=== PATIENT | female | born 1995 | race Caucasian/White ===

== ENCOUNTER 2020-12-10 21:48 | Outpatient (CLI) | payer OTHER ==
[2020-12-10 22:39] VITALS: BP 132/73
--- NOTE | 2020-12-10 23:26 | IPNPDOC ---
Text Note Date of Service The patient was seen on 12/10/20. NOTE 25 yo called re decreased movement x 1 hour. never seen here. has all care in [place] . PATIENT CALLED [place] TOLD TO COME TO [facility] FOR EVALUATION. ATTEMPTED TO GET RECORDS FROM [facility] IN [place], UNAVAILABLE. 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 HAS BEEN GOING WEEKLY TO [place] FOR VISITS. PATIENT HISTORY IS PRIMARY CS HAD CS, FOR PRE E NRFHT FAILURE TO DILATE AFTER IOL DEVELOPED INFECTION PP . HAD ELEVATED 1 HOUR GLUCOSE NO 3 HOUR GTT NO DIET OR MONITORING. ON EXAMINATION TODAY NO CONTRACTIONS NO VAGINAL BLEEDING NO SCAR PAIN. SF HEIGHT 40 VERTEX PRESENTATION. CATEGORY 1 STRIP NO CONTRACTIONS MODERATE VARIABILITY BASELINE NORMAL. NO DECELERATIONS VITALS TEMP 97.7, BP 132/73, RR 18 PULSE 115 . URINE 1015 SG 7 GLUCOSE 250 REST NEGATIVE . GBS NEGATIVE PATIENT DISCHARGED UNDELIVERED PRECAUTIONS GIVEN US VERTEX DIOMEDES SMALLEST POCKET VERTICAL 2.79 CM LIMB MOTION NOTED GOOD FLEXION VS,Fishbone, I+O VS, Fishbone, I+O Vital Signs Date Time Temp Pulse Resp B/P (MAP) Pulse Ox O2 Delivery O2 Flow Rate FiO2 12/10/20 22:39 97.7 115 18 132/73 (92) Room Air Abdi Nj MD Dec 10, 2020 23:25
== END 2020-12-10 23:31 | disposition home or self-care (01) ==
LOC: EDBD 21:48 → M LDO 21:48
PROVIDERS: ATTEND Obstetrics & Gynecology
DX: O36.8130 Decreased fetal movements, third trimester, not applicable or unspecified (principal); Z3A.00 Weeks of gestation of pregnancy not specified; O34.211 Maternal care for low transverse scar from previous cesarean delivery; Z87.59 Personal history of other complications of pregnancy, childbirth and the puerperium
CPT/HCPCS: 59025; 76815; G0378; G0463

== ENCOUNTER 2020-12-20 01:56 | Emergency (ER) | payer OTHER ==
[~2020-12-20] VITALS: Ht 165.1 cm; Wt 90.9 kg
[2020-12-20 03:30] LABS: APPEARANCE, URINE CLEAR (CLEAR); BACTERIA, URINE AUTO 1+ (NEGATIVE); BILIRUBIN, URINE AUTO NEGATIVE (NEGATIVE); BLOOD, URINE BLOOD 3+ (NEGATIVE); COLOR, URINE STRAW (YELLOW); GLUCOSE, URINE (UA) AUTO NEGATIVE (NEGATIVE); KETONE, URINE AUTO NEGATIVE (NEGATIVE); LEUKOCYTE ESTERASE, URINE AUTO NEGATIVE (NEGATIVE); NITRITE, URINE AUTO NEGATIVE (NEGATIVE); PROTEIN, URINE AUTO NEGATIVE (NEGATIVE); RBC, URINE AUTO 17 /HPF (0-3); SPECIFIC GRAVITY URINE AUTO 1.003 (1.002-1.035); SQUAMOUS EPITHELIAL CELL UR AU 0 /HPF (0-6); UROBILINOGEN, URINE AUTO 0.2 mg/dL (0.0-2.0); WBC, URINE AUTO 1 /HPF (0-3)
[2020-12-20 03:40] LABS: HEMATOCRIT 29.4 % (36.0-47.0); HEMOGLOBIN 9.4 g/dl (12.0-15.5); MEAN CORPUSCULAR VOLUME 81.4 fl (80.0-96.0); PLATELET COUNT, AUTOMATED 237 10^3/uL (150-450); RED BLOOD COUNT 3.61 10^6/uL (4.00-5.40); WHITE BLOOD COUNT 13.3 10^3/uL (4.0-10.0)
[2020-12-20 04:15] VITALS: BP 129/61
[2020-12-20 04:16] LABS: ALBUMIN 2.6 GM/DL (3.2-5.2); ALT/SGPT 23 U/L (12-78); BILIRUBIN,TOTAL 0.1 MG/DL (0.2-1.0); BLOOD UREA NITROGEN 17 MG/DL (7-18); CALCIUM LEVEL 8.8 MG/DL (8.5-10.1); CARBON DIOXIDE LEVEL 26 MEQ/L (21-32); CHLORIDE LEVEL 108 MEQ/L (98-107); CREATININE FOR GFR 0.59 MG/DL (0.55-1.30); GLOMERULAR FILTRATION RATE > 60.0 (>60); GLUCOSE, FASTING 92 MG/DL (70-100); POTASSIUM SERUM 4.1 MEQ/L (3.5-5.1); SODIUM LEVEL 141 MEQ/L (136-145); TOTAL PROTEIN 6.5 GM/DL (6.4-8.2)
--- NOTE | 2020-12-20 19:59 | ECGEPIP ---
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
== END 2020-12-20 04:42 | disposition home or self-care (01) ==
LOC: M ED 01:56
DX: R55 Syncope and collapse (principal); Z87.59 Personal history of other complications of pregnancy, childbirth and the puerperium

== ENCOUNTER 2021-05-01 18:43 | Emergency (ER) | payer OTHER ==
[~2021-05-01] VITALS: Ht 165.1 cm; Wt 95.7 kg
[2021-05-01] MEDS ORDERED: ONDANSETRON 4MG/2ML VIAL IV ONE (20:30)
[2021-05-01] MEDS ORDERED: KETOROLAC 30 MG/ML 1ML VIAL IV ONE (20:30)
[2021-05-01] MEDS ORDERED: NS 1,000 ML IV ONE (20:30)
[2021-05-01 21:06] LABS: BASO # 0.1 10^3/uL (0.0-0.2); BASO % 0.7 % (0.0-1.0); EOS # 0.2 10^3/uL (0.0-0.5); HEMOGLOBIN 14.1 g/dl (12.0-15.5); LYMPH # 3.3 10^3/uL (1.5-5.0); LYMPH % 15.3 % (24.0-44.0); MEAN CORPUSCULAR HEMOGLOBIN 27.3 pg (27.0-33.0); MEAN CORPUSCULAR VOLUME 85.3 fl (80.0-96.0); MONO % 4.4 % (2.0-8.0); NEUTROPHILS # 16.7 10^3/uL (1.5-8.5); NEUTROPHILS % 78.2 % (36.0-66.0); PLATELET COUNT, AUTOMATED 329 10^3/uL (150-450); RED BLOOD COUNT 5.16 10^6/uL (4.00-5.40); WHITE BLOOD COUNT 21.4 10^3/uL (4.0-10.0)
[2021-05-01 21:42] LABS: RSV AMPLIFICATION NEGATIVE (NEGATIVE)
--- NOTE | 2021-05-01 22:01 | REPVR ---
PROCEDURE INFORMATION: Exam: XR Chest Exam date and time: 05/01/2021 8:39 PM Age: 26 years old Clinical indication: Shortness of breath; Additional info: SOB TECHNIQUE: Imaging protocol: XR of the chest. Views: 1 view. COMPARISON: No relevant prior studies available. FINDINGS: Lungs: Unremarkable. No consolidation. Pleural spaces: Unremarkable. No pleural effusion. No pneumothorax. Heart/Mediastinum: Unremarkable. No cardiomegaly. Bones/joints: Unremarkable. IMPRESSION: No acute findings. Electronically signed by: Delano Hanson On 05/01/2021 22:00:27 PM
[2021-05-01] MEDS ORDERED: ISOVUE-370 76% 100ML VIAL As Ordered ONE (22:44)
--- NOTE | 2021-05-01 23:21 | REPVR ---
PROCEDURE INFORMATION: Exam: CTA Chest With Contrast Exam date and time: 05/01/2021 10:46 PM Age: 26 years old Clinical indication: Shortness of breath; Additional info: donald ALMONTE, mariel TECHNIQUE: Imaging protocol: Computed tomographic angiography of the chest with contrast. Axial, coronal and sagittal reformatted images were created and reviewed. 3D rendering (Not supervised by radiologist): MIP and/or 3D reconstructed images were created by the technologist. Radiation optimization: All CT scans at this facility use at least one of these dose optimization techniques: automated exposure control; mA and/or kV adjustment per patient size (includes targeted exams where dose is matched to clinical indication); or iterative reconstruction. Contrast material: ISOVUE 370; Contrast volume: 75 ml; Contrast route: INTRAVENOUS (IV); COMPARISON: CR PORTABLE CHEST X-RAY 05/01/2021 8:33 PM FINDINGS: Pulmonary arteries: Contrast opacification satisfactory. No intraluminal filling defect. Aorta: Unremarkable. No aneurysm or dissection. Lungs: Unremarkable. No consolidation. No mass. Pleural spaces: Unremarkable. No pneumothorax. No pleural effusion. Heart: Unremarkable. No cardiomegaly. No pericardial effusion. Lymph nodes: No pathologically enlarged lymph nodes. Bones/joints: No acute osseous abnormality. Soft tissues: Unremarkable. IMPRESSION: No CT evidence of pulmonary embolism. Electronically signed by: Christiano Melton On 05/01/2021 23:20:39 PM
[2021-05-02 00:57] VITALS: BP 138/83
--- NOTE | 2021-05-02 19:16 | ECGEPIP ---
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
== END 2021-05-02 00:57 | disposition home or self-care (01) ==
LOC: M ED 18:43
DX: R06.02 Shortness of breath (principal); D72.829 Elevated white blood cell count, unspecified; M79.10 Myalgia, unspecified site; J02.9 Acute pharyngitis, unspecified; R53.83 Other fatigue; Z88.2 Allergy status to sulfonamides
CPT/HCPCS: 71045; 71275; 80047; 85025; 85379; 87631; 87880; 93005; 96361; 96374; 96375; 99284; J1885; J2405; Q9967

== ENCOUNTER 2022-01-25 05:09 | Inpatient (IN) | payer OTHER ==
[2022-01-25] VITALS (9 sets, daily range): BP systolic 109–125; BP diastolic 58–84
[~2022-01-25] VITALS: Ht 165.1 cm; Wt 96.8 kg
[~2022-01-25 05:09] MED LIST: FOLI1TAB11 PO; PRENTAB53 PO; UNIS25TA3 PO; ZOLO50TA PO
[2022-01-25] MEDS ORDERED: HOME MED LIST COMPLETE! XX SCH (05:30)
[2022-01-25] MEDS ORDERED: LR 1,000 ML IV SCH ×2 (06:00→10:05)
[2022-01-25] MEDS ORDERED: BUPIVACAINE HCL 0.25% 10ML VIAL SC ONE ×2 (06:00→07:05)
[2022-01-25] MEDS ORDERED: LACTATED RINGER'S 1000 ML IV ONE (06:00)
[2022-01-25] MEDS ORDERED: BICITRA 30ML SOLN UDC PO ONE ×2 (06:00→07:05)
[2022-01-25] MEDS ORDERED: ACETAMINOPHEN 650 MG SUPP PR ONE ×2 (06:00→07:05)
[2022-01-25] MEDS ORDERED: ceFAZolin SOD 1 GM in D5W MINI-BAG PLUS 50 ML IV ONE (06:00)
[2022-01-25] MEDS ORDERED: AZITHROMYCIN INJ 500 MG, VIAL MATE ADAPTER 1 EACH in NS 250 ML IV ONE ×2 (06:05→07:05)
[2022-01-25 06:40] LABS: HEMATOCRIT 34.1 % (36.0-47.0); HEMOGLOBIN 11.2 g/dl (12.0-15.5); MEAN CORPUSCULAR HEMOGLOBIN 27.3 pg (27.0-33.0); MEAN CORPUSCULAR HGB CONC 32.8 g/dl (32.0-36.5); PLATELET COUNT, AUTOMATED 159 10^3/uL (150-450); RED BLOOD COUNT 4.11 10^6/uL (4.00-5.40); WHITE BLOOD COUNT 13.3 10^3/uL (4.0-10.0)
[2022-01-25] MEDS ORDERED: OXYTOCIN DRIP 30 UNITS in IV 1 EA IV PRN ×4 (07:05)
[2022-01-25] MEDS ORDERED: OXYTOCIN INJ 10 UNITS/ML VIAL (J2590) IV PRN (07:05)
[2022-01-25] MEDS ORDERED: TRANEXAMIC ACID INJection 1,000 MG in NS 100 ML IV PRN (07:05)
[2022-01-25] MEDS ORDERED: ceFAZolin SOD 2 GM in IV 1 EA IV ONE (07:05)
[2022-01-25] MEDS ORDERED: METHYLERGONOVINE MALEATE 0.2 MG/ML VIAL (J2210) IM PRN (07:05)
[2022-01-25] MEDS ORDERED: LIDOCAINE 1% MDV 20ML VIAL INFIL PRN (07:05)
[2022-01-25] MEDS ORDERED: OXYTOCIN INJ 10 UNITS/ML VIAL (J2590) As Ordered ONE ×4 (07:26→09:44)
[2022-01-25] MEDS ORDERED: MORPHINE PRES-FREE INJ 10 MG/10 ML VIAL As Ordered ONE (07:26)
[2022-01-25] MEDS ORDERED: ceFAZolin 2 GM/D5W 50 ML IV BAG (J0690 PER 500MG) As Ordered ONE (07:33)
[2022-01-25] MEDS ORDERED: AZITHROMYCIN INJ 500MG VIAL As Ordered ONE (07:34)
[2022-01-25] MEDS ORDERED: METOCLOPRAMIDE INJ 10MG/2ML VIAL (J2765 PER 1) IV PRN (08:28)
[2022-01-25] MEDS ORDERED: ONDANSETRON 4MG/2ML VIAL IV PRN ×2 (08:28→10:05)
[2022-01-25] MEDS ORDERED: diphenhydrAMINE 50MG/ML VIAL (J1200) IV PRN (08:28)
[2022-01-25] MEDS ORDERED: NALOXONE INJ 0.4MG/1ML VIAL (J2310 PER 1MG) IV PRN ×2 (08:28)
[2022-01-25] MEDS ORDERED: ONDANSETRON 4MG/2ML VIAL As Ordered ONE (09:01)
[2022-01-25] MEDS ORDERED: dexameTHASONE 4 MG/ML 1ML VIAL (J1100 PER 1MG) As Ordered ONE (09:01)
[2022-01-25] MEDS ORDERED: LIDOCAINE 2% 100MG/5ML SDV (FOR ANES.) As Ordered ONE (09:05)
[2022-01-25] MEDS ORDERED: propofoL 200 MG/20 ML VIAL As Ordered ONE (09:05)
[2022-01-25 09:17] LABS: CORD GAS ABE A -4.8; CORD GAS O2 SAT A 28.8 %; CORD GAS PCO2 A 53.3 mmHg; CORD GAS PH A 7.252 UNITS; CORD GAS PO2 A 17.8 mmHg; CORD GAS SBC A 19.1 MEQ/L; CORD GAS TCO2 A 24.6 MEQ/L
[2022-01-25 09:19] LABS: CORD GAS ABE V -4.2; CORD GAS HCO3 V 20.9 MEQ/L; CORD GAS O2 SAT V 68.8 %; CORD GAS PCO2 V 38.6 mmHg; CORD GAS PH V 7.352 UNITS; CORD GAS PO2 V 30.1 mmHg; CORD GAS SBC V 20.4 MEQ/L; CORD GAS TCO2 V 22.1 MEQ/L
[2022-01-25] MEDS ORDERED: PHENYLephrine 500MCG 5ML (100MCG/ML) SYRINGE As Ordered ONE (09:19)
[2022-01-25] MEDS ORDERED: RHOGAM 300 MCG (1500 IU) INJ (J2790) IM SCH (10:05)
[2022-01-25] MEDS ORDERED: SIMETHICONE 80MG CHEW TAB PO PRN (10:05)
[2022-01-25] MEDS ORDERED: ACETAMINOPHEN TAB 650MG DOSE (2X325MG) PO PRN (10:05)
[2022-01-25] MEDS ORDERED: HYDROMORPHONE HCL 0.5 MG/ 0.5 ML SYRINGE (J1170 PER 1) IV PRN (10:05)
[2022-01-25] MEDS ORDERED: ACETAMINOPHEN 650 MG SUPP PR PRN (10:05)
[2022-01-25] MEDS ORDERED: METHYLERGONOVINE MALEATE 0.2 MG TAB PO PRN (10:05)
[2022-01-25] MEDS ORDERED: PERCOCET 5MG/325MG TAB PO PRN (10:05)
[2022-01-25] MEDS ORDERED: MEPERIDINE INJ 25 MG/ML VIAL (J2175) IV PRN (10:05)
[2022-01-25] MEDS ORDERED: OXYTOCIN DRIP 30 UNITS in IV 1 EA IV SCH ×4 (10:05)
[2022-01-25] MEDS ORDERED: oxyCODONE 5MG TAB PO PRN (10:05)
[2022-01-25] MEDS ORDERED: MOM 30ML SUSPENSION UDC PO PRN (10:05)
[2022-01-25] MEDS ORDERED: DOCUSATE SODIUM 100MG CAPSULE PO PRN (10:05)
[2022-01-25] MEDS ORDERED: ANUSOL HC CREAM 30GM TOP PRN (10:05)
[2022-01-25] MEDS ORDERED: ACETAMINOPHEN 500 MG TAB PO PRN (10:05)
[2022-01-25] MEDS ORDERED: OXYTOCIN INJ 10 UNITS/ML VIAL (J2590) IV ONE (10:05)
[2022-01-25] MEDS ORDERED: MEASLES,MUMPS,RUBELLA VACCINE INJ (MMR-II) (90707) SC SCH (10:05)
[2022-01-25] MEDS ORDERED: OXYTOCIN 30 UNITS IN 0.9% NaCl 500ML IV BAG (J2590) As Ordered ONE (10:28)
[2022-01-25] MEDS ORDERED: fentaNYL 100 MCG/2 ML INJECTION As Ordered ONE ×2 (10:38→11:23)
[2022-01-25] MEDS: fentaNYL 100 MCG/2 ML INJECTION IV PRN ×3 (10:43→11:25)
[2022-01-25] MEDS ORDERED: SERTRALINE HCL 50 MG TAB PO ONE (11:15)
[2022-01-25] MEDS: KETOROLAC 30 MG/ML 1ML VIAL IV SCH ×2 (15:30→20:56)
[2022-01-25] MEDS: PERCOCET 5MG/325MG TAB PO PRN (16:25)
[2022-01-25] MEDS: SERTRALINE HCL 50 MG TAB PO SCH (20:56)
[2022-01-26] MEDS: KETOROLAC 30 MG/ML 1ML VIAL IV SCH (02:52)
[2022-01-26 05:53] VITALS: BP 107/55
[2022-01-26 06:48] LABS: HEMATOCRIT 27.1 % (36.0-47.0); MEAN CORPUSCULAR HEMOGLOBIN 27.4 pg (27.0-33.0); MEAN CORPUSCULAR HGB CONC 33.2 g/dl (32.0-36.5); MEAN CORPUSCULAR VOLUME 82.4 fl (80.0-96.0); PLATELET COUNT, AUTOMATED 138 10^3/uL (150-450); RED BLOOD COUNT 3.29 10^6/uL (4.00-5.40); WHITE BLOOD COUNT 17.1 10^3/uL (4.0-10.0)
[2022-01-26] MEDS: PRENATAL VITAMINS CHEWABLE TABLET PO SCH (09:08)
[2022-01-26] MEDS: IBUPROFEN 600MG TAB PO PRN ×2 (09:09→15:43)
[2022-01-26 10:00] VITALS: BP 129/63
[2022-01-26] MEDS: PERCOCET 5MG/325MG TAB PO PRN ×2 (10:04→18:21)
[2022-01-26 17:14] VITALS: BP 112/59
[2022-01-26 18:00] VITALS: BP 131/77
[2022-01-26] MEDS: SERTRALINE HCL 50 MG TAB PO SCH (21:26)
[2022-01-26 22:00] VITALS: BP 98/51
[2022-01-26 23:40] VITALS: BP 130/60
[2022-01-27] MEDS: PERCOCET 5MG/325MG TAB PO PRN (00:07)
[2022-01-27 06:00] VITALS: BP 120/74
[2022-01-27] MEDS: PRENATAL VITAMINS CHEWABLE TABLET PO SCH (09:27)
[2022-01-27] MEDS: IBUPROFEN 600MG TAB PO PRN (09:27)
== END 2022-01-27 13:10 | disposition home or self-care (01) | DRG 773 ==
LOC: M LDI 05:09 → EDSTATUS 07:30 → M OBS 11:35
PROVIDERS: ADMIT Obstetrics & Gynecology; ATTEND Obstetrics & Gynecology
PROC: 10D00Z1 Extraction of Products of Conception, Low, Open Approach (ICD-10-PCS; principal; 2022-01-25)
DX: O34.211 Maternal care for low transverse scar from previous cesarean delivery (principal); Z3A.39 39 weeks gestation of pregnancy; E66.9 Obesity, unspecified; O99.214 Obesity complicating childbirth; O24.420 Gestational diabetes mellitus in childbirth, diet controlled; O99.344 Other mental disorders complicating childbirth; F41.9 Anxiety disorder, unspecified; Z37.0 Single live birth

== ENCOUNTER → 2024-04-23 | Outpatient (CLI) | payer OTHER | LOC: M WHC 13:46 | PROVIDERS: ATTEND Family Medicine | DX: N64.4 Mastodynia (principal) ==